=== PATIENT | male | born 1975 | race Caucasian/White ===

== ENCOUNTER 2020-08-04 10:16 | Emergency (ER) | payer MEDICAID ==
[~2020-08-04] VITALS: Ht 182.9 cm; Wt 129.7 kg
[2020-08-04 10:34] VITALS: BP 162/82
--- NOTE | 2020-08-04 10:40 | NUR ---
STEPHANE Reza to triage to evaluate pt. Pt given wrist splints.
== END 2020-08-04 11:05 | disposition home or self-care (01) ==
LOC: ED 10:39
DX: G56.01 Carpal tunnel syndrome, right upper limb (principal); M25.531 Pain in right wrist; M25.532 Pain in left wrist
CPT/HCPCS: 29125; 99283